=== PATIENT | female | born 1995 | race African-American/Black ===

== ENCOUNTER 2020-08-14 22:55 | Emergency (ER) | payer MEDICAID ==
[~2020-08-14] VITALS: Ht 165.1 cm; Wt 111.0 kg
[2020-08-14] MEDS ORDERED: IBUPROFEN 600MG TABLET PO STA (23:42)
[2020-08-15 00:26] LABS: BASOPHILS % 0.3 % (0.0-2.0); EOSINOPHILS % 1.8 % (0.0-5.0); HEMATOCRIT. 35.3 % (36.0-48.0); HEMOGLOBIN. 11.6 g/dL (12.0-16.0); LYMPHOCYTES % 26.1 % (20.0-50.0); MEAN CORPUSCULAR VOLUME 82.5 fL (81.0-99.0); MEAN PLATELET VOLUME 7.6 fl (7.4-10.4); MONOCYTES % 8.7 % (2.0-8.0); NEUTROPHILS % 63.1 % (40.0-76.0); PLATELET 280 x1000/uL (130-400); RED BLOOD CELL COUNT 4.28 mill/uL (4.2-5.4); RED CELL DISTRIBUTION WIDTH 14.2 % (11.6-14.6)
[2020-08-15 00:31] LABS: CHLORIDE 108 mEq/L (98-107)
[2020-08-15 01:05] VITALS: BP 137/64
== END 2020-08-15 01:10 | disposition home or self-care (01) ==
LOC: ER 22:55
DX: R07.89 Other chest pain (principal); Z88.0 Allergy status to penicillin
CPT/HCPCS: 36415; 71045; 80053; 85025; 93005; 99285

== ENCOUNTER 2020-12-01 08:16 | Emergency (ER) | payer BC, MEDICAID ==
[~2020-12-01] VITALS: Ht 165.1 cm; Wt 85.0 kg
[2020-12-01] MEDS ORDERED: GABA100C MT (08:57)
[2020-12-01 09:12] VITALS: BP 141/87
== END 2020-12-01 09:12 | disposition home or self-care (01) ==
LOC: ER 08:16
DX: G62.9 Polyneuropathy, unspecified (principal); Z88.0 Allergy status to penicillin
CPT/HCPCS: 99283